=== PATIENT | male | born 1960 | race American Indian/Alaskan Native ===

== ENCOUNTER 2018-10-02 02:20 | Emergency (ER) | payer SELFPAY ==
[2018-10-02 02:39] VITALS: TEMP 98.7
--- NOTE | 2018-10-02 03:28 | C.PDOC ---
History Of Present Illness 57 year old presents to the ED c/o chest pain after smoking and using alcohol tonight. Patient reports he think what he smoked contained some cocaine, after which he started feeling palpitations and pain in his right sided chest. Patient reports breathing worsens his pain, also is associated with some SOB. Patient admits to chronic cocaine use also. Patient was given aspirin on route to the ED. Patient denies fever, chills, headache, visual changes, nausea, vomit, rash, weakness, numbness. Time Seen by Provider: 10/02/18 02:52 Chief Complaint (Nursing): Chest Pain History Per: Patient, EMS History/Exam Limitations: no limitations Onset/Duration Of Symptoms: Hrs Current Symptoms Are (Timing): Still Present Quality: "Pain" Exacerbating Factors: Deep Breathing, Other (cocaine) Nitro Therapy Administered: 1, Per ED Recent travel outside of the [place]: No Additional History Per: Patient Past Medical History Reviewed: Historical Data, Nursing Documentation, Vital Signs Vital Signs: Last Vital Signs Temp 98.7 F 10/02/18 02:30 Pulse 87 10/02/18 02:30 Resp 22 10/02/18 02:30 BP 112/65 10/02/18 02:30 Pulse Ox 93 L 10/02/18 02:30 - Medical History PMH: HTN Denies: Chronic Kidney Disease Surgical History: No Surg Hx Family History: States: Unknown Family Hx - Social History Hx Alcohol Use: Yes Hx Substance Use: Yes - Immunization History Hx Tetanus Toxoid Vaccination: No Hx Influenza Vaccination: Yes Hx Pneumococcal Vaccination: No Review Of Systems Constitutional: Negative for: Fever, Chills Cardiovascular: Positive for: Chest Pain, Palpitations Respiratory: Positive for: Shortness of Breath. Negative for: Cough Gastrointestinal: Negative for: Nausea, Vomiting, Abdominal Pain Skin: Negative for: Rash Neurological: Negative for: Weakness, Numbness, Headache, Dizziness Physical Exam - Physical Exam Appears: Non-toxic, No Acute Distress Skin: Normal Color, Warm, Dry Head: Atraumatic, Normacephalic Eye(s): bilateral: Normal Inspection, PERRL, EOMI Neck: Normal ROM, Supple Chest: Symmetrical, Tenderness (reproducible right sided chest) Cardiovascular: Rhythm Regular Respiratory: Normal Breath Sounds, No Rales, No Rhonchi, No Wheezing Gastrointestinal/Abdominal: Soft, No Tenderness, No Guarding, No Rebound Extremity: Normal ROM, No Tenderness, No Swelling Neurological/Psych: Oriented x3, Normal Speech, Normal Cognition Gait: Steady ED Course And Treatment - Laboratory Results Result Diagrams: 10/02/18 03:25 10/02/18 03:25 ECG: Interpreted By Me, Viewed By Me ECG Rhythm: Sinus Rhythm Interpretation Of ECG: No acute St/T wave changes Rate From EC (BPM) O2 Sat by Pulse Oximetry: 93 Progress Note: Plan: - EKG. - Labs. - CXR. - Nitro 0.4 mg SL. Pt sleeping comfortably but upon asking c/o of moderate pain and requeting pain meds. Pt received toradol IV- labs pending. 6AM- Pt is sleeping comfortably in NAD , i d/w pt lab abs ekg/CXR results- Pt refuses to be admitted on tele obs, AAOx 3. I d/w pts risk of doing so including undiagnosed MT for proper manamgent and treatment leading to cardiac arrest / . Disposition Counseled Patient/Family Regarding: Diagnosis, Need For Followup, Rx Given - Disposition Referrals: [facility] [Outside] Disposition: AGAINST MEDICAL ADVICE Disposition Time: 05:36 Condition: FAIR Forms: [employer] (Hungarian) - Clinical Impression Clinical Impression: Chest pain, Drug abuse and dependence - PA / CONTENT ANALYST / Resident Statement MD/DO has reviewed & agrees with the documentation as recorded. - Scribe Statement The provider has reviewed the documentation as recorded by the Scribe Kota Vincent All medical record entries made by the Scribe were at my direction and personally dictated by me. I have reviewed the chart and agree that the record accurately reflects my personal performance of the history, physical exam, medical decision making, and the department course for this patient. I have also personally directed, reviewed, and agree with the discharge instructions and disposition.
[2018-10-02 03:30] LABS: BASO # 0.1 K/uL (0.0-0.2); EOS % 0.6 % (0.0-4.0); HEMOGLOBIN 12.4 g/dL (12.0-18.0); LYMPH # 1.8 K/uL (1.0-4.3); LYMPH % 25.7 % (20.0-40.0); MEAN CELL VOLUME 93.3 fL (80.0-94.0); MEAN CORPUSCULAR HEMOGLOBIN 30.8 pg (27.0-31.0); MEAN PLATELET VOLUME 7.4 fL (7.2-11.7); MONO # 0.4 K/uL (0.0-0.8); MONO % 5.5 % (0.0-10.0); NEUT # 4.8 K/uL (1.8-7.0); NEUT % 67.2 % (50.0-75.0); RBC 4.02 Mil/uL (4.40-5.90); RED CELL DISTRIBUTION WIDTH 13.5 % (11.5-14.5); WHITE BLOOD COUNT 7.2 K/uL (4.8-10.8)
[2018-10-02 03:42] LABS: ALB/GLOB RATIO 1.6 (1.0-2.1); ALBUMIN 4.3 g/dL (3.5-5.0); ALT/SGPT 17 U/L (21-72); AST/SGOT 26 U/L (17-59); BLOOD UREA NITROGEN 14 mg/dL (9-20); CALCIUM 9.3 mg/dl (8.6-10.4); GFR NON-AFRICAN AMERICAN > 60
[2018-10-02 04:07] LABS: INR 1.1; PROTHROMBIN TIME 11.8 SECONDS (9.7-12.2)
[2018-10-02 05:49] VITALS: BP 104/68; PULSE 75; RESP 16
[2018-10-02 05:50] VITALS: O2SAT 93
--- NOTE | 2018-10-02 09:09 | RAD ---
Chest x-ray single frontal view HISTORY: Chest pain. COMPARISON: None available. Findings: Diffuse increased interstitial lung markings. Mild venous congestion. Bilateral hilar prominence. Biapical pleural thickening with upper granulomatous changes. Tortuous aorta. Heart size within limits. Degenerative changes in the spine. Rounded radiopaque densities projecting over the left greater tuberosity which may represent loose bodies and or additional etiology. Correlation with left shoulder x-rays may be helpful if clinically indicated. Impression: Diffuse increased interstitial lung markings. Mild venous congestion. Bilateral hilar prominence. Biapical pleural thickening with upper granulomatous changes. Rounded radiopaque densities projecting over the left greater tuberosity which may represent loose bodies and or additional etiology. Correlation with left shoulder x-rays may be helpful if clinically indicated.
--- NOTE | 2018-10-04 14:44 | CARD ---
APPROVED REPORT Date of service: 10/02/2018 EKG Measurement Heart [id number] <Conclusion> Normal sinus rhythm Normal Electrocardiogram
== END 2018-10-02 06:28 | disposition left against medical advice (07) ==
LOC: C.ER 02:20
DX: R07.9 Chest pain, unspecified (principal); F19.20 Other psychoactive substance dependence, uncomplicated
CPT/HCPCS: 71045; 80053; 84484; 85025; 85610; 85730; 93005; 96374; 99285; J1885